=== PATIENT | female | born 1975 | race Asian ===

== ENCOUNTER → 2025-03-09 | Outpatient (CLI) | payer BC ==
[2025-03-09 08:40] LABS: LDL CHOLESTEROL 139.0 mg/dL (5-100)
[2025-03-09 08:41] LABS: TRIGLYCERIDE 151.0 mg/dL (0-150)
[2025-03-09 08:43] LABS: T4 FREE 1.38 ng/dL (0.89-1.76)
[2025-03-10 09:09] LABS: THYROID PEROXIDASE ANTIBODY 19 IU/mL (0-34)
== END | disposition home or self-care (01) ==
LOC: LAB 07:20
PROVIDERS: ATTEND Internal Medicine Endocrinology, Diabetes & Metabolism
DX: E03.9 Hypothyroidism, unspecified (principal); E78.00 Pure hypercholesterolemia, unspecified
CPT/HCPCS: 36415; 80061; 84432; 84439; 84443; 84481; 86376

== ENCOUNTER → 2025-03-14 | Day surgery (SDC) | payer BC ==
[~2025-03-14] MED LIST: LIDOCAINE HCL 1% 10 MG/ML 10ML VIAL ONE; SODIUM BICARBONATE 4.2% 2.5MEQ/5ML VIAL IV ONE
== END | disposition home or self-care (01) ==
LOC: RAD 07:20
PROVIDERS: ATTEND Internal Medicine Endocrinology, Diabetes & Metabolism
DX: E04.1 Nontoxic single thyroid nodule (principal); Z79.899 Other long term (current) drug therapy
CPT/HCPCS: 10005; 88172; 88173; J2003; J3490